=== PATIENT | male | born 1980 | race Caucasian/White ===

== ENCOUNTER 2024-07-28 22:23 | Emergency (ER) | payer SELFPAY ==
[2024-07-28] MEDS: Diphtheria,Pertussis(Acell),Tetanus Vaccine 0.5 ML Syringe IM ONE (23:00)
[2024-07-28] MEDS: Lidocaine 2% 5 ML SDV INJECT ONE (23:00)
[2024-07-28] MEDS: Bacitracin Oint 1 GM U/D Packet TOP ONE (23:49)
== END 2024-07-28 23:55 | disposition home or self-care (01) ==
LOC: MW.ED 22:23
DX: S61.217A Laceration without foreign body of left little finger without damage to nail, initial encounter (principal); Z23 Encounter for immunization; W25.XXXA Contact with sharp glass, initial encounter
CPT/HCPCS: 12001; 12002; 90471; 90715; 99282; 99282-25; J3490

== ENCOUNTER 2024-08-12 09:28 | Emergency (ER) | payer SELFPAY | END 2024-08-12 10:01 | LOC: MW.ED 09:28 | DX: S61.217D Laceration without foreign body of left little finger without damage to nail, subsequent encounter (principal); W25.XXXD Contact with sharp glass, subsequent encounter | CPT/HCPCS: 99281 ==